=== PATIENT | female | born 1980 | race Caucasian/White ===

== ENCOUNTER 2016-06-26 20:20 | Emergency (ER) | payer OTHER ==
[2016-06-26 20:32] VITALS: BP 114/52; PULSE 88; TEMP 98.8; BMI 19.2
--- NOTE | 2016-06-26 20:57 | PDOC ---
History of Present Illness - General Chief Complaint: Cold Symptoms Stated Complaint: CONGESTION/DIFFICULTY BREATHING Time Seen by Provider: 06/26/16 20:33 History Source: Patient - History of Present Illness Timing/Duration: reports: other Associated Symptoms: reports: cough, headache, nasal congestion. denies: earache, fever/chills, sore throat, wheezing Past History - Past Medical History Allergies/Adverse Reactions: Allergies Allergy/AdvReac Type Severity Reaction Status Date / Time shellfish derived Allergy Intermediate Verified 08/18/15 17:23 No Known Drug Allergies Allergy Verified 08/18/15 17:23 Home Medications: Ambulatory Orders NK [No Known Home Medication] 06/26/16 Anemia: Yes Asthma: No Cancer: No Cardiac Disorders: No Diabetes: No HTN: No Seizures: No Thyroid Disease: No - Immunization History Immunization Up to Date: Yes - Psycho/Social/Smoking Cessation Hx Anxiety: No Suicidal Ideation: No Smoking Status: Yes Smoking History: Current every day smoker Have you smoked in the past 12 months: No Number of Cigarettes Smoked Daily: 10 Information on smoking cessation initiated: No 'Breaking Loose' booklet given: 08/18/15 Hx Alcohol Use: No Drug/Substance Use Hx: No Substance Use Type: None Hx Substance Use Treatment: No Review of Systems - Review of Systems Constitutional: No: Fever HEENTM: No: Ear Pain, Throat Pain Respiratory: Yes: Cough. No: Wheezing Neurological: Yes: Headache *Physical Exam - Vital Signs Last Vital Signs Temp Pulse Resp BP Pulse Ox 98.8 F 88 18 114/52 99 06/26/16 20:29 06/26/16 20:29 06/26/16 20:29 06/26/16 20:29 06/26/16 20:29 - Physical Exam General Appearance: Yes: Appropriately Dressed. No: Apparent Distress HEENT: positive: Normal ENT Inspection, Normal Voice. negative: Scleral Icterus (R), Scleral Icterus (L) Neck: positive: Supple. negative: Lymphadenopathy (R), Lymphadenopathy (L) Respiratory/Chest: positive: Lungs Clear, Normal Breath Sounds. negative: Respiratory Distress, Wheezing Cardiovascular: positive: Regular Rate, S1, S2 Integumentary: positive: Dry, Warm Neurologic: positive: Fully Oriented, Alert, Normal Mood/Affect Medical Decision Making - Medical Decision Making 06/26/16 20:54 35-year-old female smoker, presenting with 2 weeks of cough with nasal congestion and headache. Patient states she sometimes feels like she is unable to breathe. Denies hemoptysis, wheezing, CP, fever or chills. Patient well- appearing in ED and stable with unremarkable exam. Most likely URI. Dc with supportive treatment with smoking cessation encouraged 06/26/16 20:56 06/26/16 20:56 *DC/Admit/Observation/Transfer Diagnosis at time of Disposition: URI (upper respiratory infection) Qualifiers: URI type: unspecified viral URI Qualified Code(s): J06.9 - Acute upper respiratory infection, unspecified; B97.89 - Other viral agents as the cause of diseases classified elsewhere - Discharge Dispostion Disposition: HOME Condition at time of disposition: Good - Patient Instructions Printed Discharge Instructions: DI for Viral Upper Respiratory Infection -- Adult, How to Quit Smoking
== END 2016-06-26 20:56 | disposition home or self-care (01) ==
LOC: JERFT 20:20
DX: J06.9 Acute upper respiratory infection, unspecified (principal); B97.89 Other viral agents as the cause of diseases classified elsewhere; F17.210 Nicotine dependence, cigarettes, uncomplicated
CPT/HCPCS: 99281-25

== ENCOUNTER 2018-12-12 04:59 | Day surgery (SDC) | payer OTHER ==
[2018-12-07 17:38] VITALS: BMI 19.0
--- NOTE | 2018-12-12 08:40 | HP ---
History & Physical Update - History History: No Change - Physical Physical: No Change - Assessment Assessment: No Change - Plan Plan: No Change (Agree with and no updates to H&P from 12/07/18. For laparoscopic b/l salpingectomy.)
[2018-12-12] MEDS ORDERED: oxyCODONE HCL 5 MG TABLET PO PRN ×2 (09:57)
[2018-12-12] MEDS ORDERED: ONDANSETRON 4 MG/2 ML VIAL IVPUSH PRN (09:57)
[2018-12-12] MEDS ORDERED: LACTATED RINGERS SOLUTION 1,000 ML IV SCH (10:00)
[2018-12-12] MEDS ORDERED: ACETAMINOPHEN 325 MG TABLET (FP) PO PRN (10:59)
[2018-12-12] MEDS ORDERED: IBUPROFEN 600 MG TABLET (FP) PO PRN (10:59)
--- NOTE | 2018-12-12 10:59 | HP ---
Admitting History and Physical - Admission Chief Complaint: Here for tubal ligation/sterilization. History of Present Illness: 38 y/o P3 female with LMP 11/26/18 here for schedule laparoscopic bilateral salpingectomy. Pt has no significant medical history. Has h/o c section X 3 otherwise no surgical history. Pt does not take any medications. Pt has been counseled extensively in the office regarding sterilization and she requests this procedure electively. History Source: Patient, Medical Record Limitations to Obtaining History: No Limitations - Past Medical History ...LMP: 11/26/18 ...LMP Comment: regular ...: No ...Para: 3 - Past Surgical History Past Surgical History: Yes: - Smoking History Smoking history: Current every day smoker Have you smoked in the past 12 months: No Aproximately how many cigarettes per day: 6 - Alcohol/Substance Use Hx Alcohol Use: Yes (socially) - Social History Usual Living Arrangement: Yes: With Spouse ADL: Independent History of Recent Travel: No Home Medications - Allergies Allergies/Adverse Reactions: Allergies Allergy/AdvReac Type Severity Reaction Status Date / Time shellfish derived Allergy Intermediate Verified 12/07/18 17:39 No Known Drug Allergies Allergy Verified 12/07/18 17:39 - Home Medications Home Medications: Ambulatory Orders NK [No Known Home Medication] 06/26/16 Review of Systems - Review of Systems Constitutional: reports: No Symptoms Eyes: reports: No Symptoms HENT: reports: No Symptoms Neck: reports: No Symptoms Cardiovascular: reports: No Symptoms Respiratory: reports: No Symptoms Gastrointestinal: reports: No Symptoms Genitourinary: reports: No Symptoms Breasts: reports: No Symptoms Reported Musculoskeletal: reports: No Symptoms Integumentary: reports: No Symptoms Neurological: reports: No Symptoms Endocrine: reports: No Symptoms Hematology/Lymphatic: reports: No Symptoms Psychiatric: reports: No Symptoms Physical Examination Vital Signs: Vital Signs Temperature 98.3 F 12/12/18 09:13 Pulse Rate 60 12/12/18 09:13 Respiratory Rate 20 12/12/18 09:13 Blood Pressure 105/66 12/12/18 09:13 O2 Sat by Pulse Oximetry (%) 100 12/12/18 09:17 Constitutional: Yes: Well Nourished, No Distress, Calm Eyes: Yes: Conjunctiva Clear HENT: Yes: Atraumatic Neck: Yes: Supple Cardiovascular: Yes: Regular Rate and Rhythm Gastrointestinal: Yes: Normal Bowel Sounds, Soft. No: Tenderness, Tenderness, Rebound Neurological: Yes: Alert, Oriented Psychiatric: Yes: Alert, Oriented Problem List - Problems (1) Admission for sterilization Code(s): Z30.2 - ENCOUNTER FOR STERILIZATION Assessment/Plan 38 y/o P3 female here for scheduled elective sterilization via bilateral salpingectomy (laparoscopic) AFVSS NPO Informed consent obtained in office and re obtained today questions answered anesthesia aware SCDs
[2018-12-12] MEDS ORDERED: BUPIVACAINE HCL/PF 0.5% (5 MG/ML) 30 ML VIAL IJ ONE ×2 (11:08)
--- NOTE | 2018-12-12 12:14 | SURG ---
Surgery Stave Jointer Note Stave Jointer: Albert Garner PA-C Date of Service: 12/12/18 Diagnosis: Voluntary sterilization Procedure: Laproscopic bilateral salpingectomy I was present for the entirety of the operative procedure. For further detail, please refer to operative report. Visit type - Case Type Case Type: Scheduled - Emergency Emergency Visit: No - New patient This patient is new to me today: Yes Date on this admission: 12/12/18 - Critical Care Critical Care patient: No
--- NOTE | 2018-12-12 12:37 | OP ---
Operative Note - Note: Operative Date: 12/12/18 (22099) Pre-Operative Diagnosis: desires sterilization Operation: laparoscopic bilateral salpingectomy Findings: normal b/l tubes and ovaries Post-Operative Diagnosis: Same as Pre-op Surgeon: Shelley Rodriguez Resident Inspector: Albert Garner Anesthesiologist/RESIDENTIAL FIELD MANAGER: Mariano Rocha Anesthesia: General Specimens Removed: bilateral fallopian tubes Estimated Blood Loss (mls): 5 Operative Report Dictated: Yes
--- NOTE | 2018-12-12 14:25 | OP ---
DATE OF OPERATION: 12/12/2018 PREOPERATIVE DIAGNOSIS: Desire for permanent sterilization. POSTOPERATIVE DIAGNOSIS: Desire for permanent sterilization. PROCEDURE: Laparoscopic bilateral salpingectomy. SURGEON: Shelley Rodriguez MD HADOOP ENGINEER: Albert Garner PA-C ANESTHESIOLOGIST: Steven. Josefina MD ANESTHESIA: General anesthesia. SPECIMENS: Bilateral fallopian tubes. COMPLICATIONS: None. ESTIMATED BLOOD LOSS: 5 mL. COUNTS: Sponge, needle, and instrument counts correct. DISPOSITION: Stable to PACU. BRIEF HISTORY AND PROCEDURE: Patient is a 38-year-old para 3 female who had been seen in the office with request for sterilization, and she had signed consent for a bilateral salpingectomy done laparoscopically. The patient was admitted to [facility] on December 12, 2018. Consents were reconfirmed. She was then taken back to the operating room, given general anesthesia, and placed in the dorsal lithotomy position. A Looney catheter was placed under sterile conditions. She was prepped and draped in the usual standard fashion, and a hard time-out was performed. A 5-mm skin incision was created in the superior aspect of the umbilicus, and a Veress needle was inserted. The abdomen was insufflated with CO2 gas, and the trocar was inserted under direct visualization with the Visiport. Two bilateral lower quadrant 5-mm ports were placed under direct visualization. The left fallopian tube was identified, traced to its fimbriated end, elevated and dissected off its attachments to the ovary, mesosalpinx, and uterus. It was removed from the left lower quadrant trocar site without difficulty under direct visualization. The same was repeated with the right fallopian tube. Excellent hemostasis was noted after the procedure. Bilateral ovaries were noted to be normal. Inspection of the other intraabdominal contents revealed no abnormalities. The abdomen was then desufflated, and the trocars were removed. The skin was reapproximated using 4-0 Biosyn and skin glue. The patient was awoken from anesthesia, Looney catheter was removed, and she was taken to PACU to recover in stable condition. SHELLEY RODRIGUEZ DO /[id number]
[2018-12-12 15:40] VITALS: BP 100/54; PULSE 53; TEMP 97.7
--- NOTE | 2018-12-17 17:12 | PATH ---
Surgical Pathology Report Patient Name: NITHYA FREY [facility]. Rec. #: [id number] /Age/Gender: 1980 (Age: 38) / F Account: [id number] Location: [facility] SURGICAL Taken: 12/12/2018 Received: 12/12/2018 Reported: 12/17/2018 Physicians: Shelley Rodriguez M.D. Specimen(s) Received A: LEFT FALLOPIAN TUBE B: RIGHT FALLOPIAN TUBE Clinical History Sterilization Final Diagnosis A. FALLOPIAN TUBE, LEFT, SALPINGECTOMY: UNREMARKABLE FALLOPIAN TUBE (INCLUDING FIMBRIATED END AND FULL LUMINAL PORTION). B. FALLOPIAN TUBE, RIGHT, SALPINGECTOMY: UNREMARKABLE FALLOPIAN TUBE (INCLUDING FIMBRIATED END AND FULL LUMINAL PORTION). Electronically Signed Nithya Londono M.D. Gross Description A. Received in formalin labeled "left fallopian tube," are 2 portions of fallopian tube measuring 3.0 and 3.5 cm in length. The longer portion displays attached fimbria. The outer surfaces are villa-gibbs and smooth. Sectioning reveals an unremarkable lumen. Clinical Manager sections are submitted in 2 cassettes as follows: 1-fimbria; 2-cross sections of fallopian tube. B. Received in formalin labeled "right tube," is a 5.3 cm in length portion of fallopian tube. The fimbria are separately received within the same container. The outer surface of the fallopian tube is gibbs-purple and smooth. Sectioning reveals an unremarkable lumen. Clinical Manager sections are submitted in 2 cassettes as follows: 1-fimbria; 2-cross sections of fallopian tube. 12/13/2018 [facility]12/13/2018
== END 2018-12-12 15:59 | disposition home or self-care (01) ==
LOC: JASU-SURG 04:59
PROVIDERS: ATTEND Obstetrics & Gynecology
PROC: 0U574ZZ Destruction of Bilateral Fallopian Tubes, Percutaneous Endoscopic Approach (ICD-10-PCS; principal; 2018-12-12 11:00)
DX: Z30.2 Encounter for sterilization (principal)
CPT/HCPCS: 84703; 88302-TC; 94760

== ENCOUNTER 2021-11-26 18:03 | Emergency (ER) | payer OTHER ==
[2021-11-26 18:22] VITALS: BP 101/64; PULSE 88; RESP 16; TEMP 98.2; BMI 19.2
== END 2021-11-26 18:47 | disposition home or self-care (01) ==
LOC: FER 18:03
DX: S63.502A Unspecified sprain of left wrist, initial encounter (principal); X50.0XXA Overexertion from strenuous movement or load, initial encounter; W01.0XXA Fall on same level from slipping, tripping and stumbling without subsequent striking against object, initial encounter
CPT/HCPCS: 73110-TC-LT-FY; 99283-25

== ENCOUNTER 2022-06-16 08:43 | Emergency (ER) | payer OTHER, BC ==
[2022-06-16 09:03] VITALS: BP 113/72; PULSE 78; RESP 16; TEMP 97.9; BMI 20.8
[2022-06-16] MEDS ORDERED: IBUPROFEN 600 MG TABLET (FP) PO ONE ×2 (09:05→09:11)
[2022-06-16] MEDS ORDERED: PSEUDOEPHEDRINE HCL 60 MG TABLET PO ONE (09:06)
[2022-06-16] MEDS ORDERED: PSEUDOEPHEDRINE HCL 30 MG TABLET ONE (09:10)
== END 2022-06-16 09:29 | disposition home or self-care (01) ==
LOC: FER 08:43
DX: U07.1 COVID-19 (principal); R05.1 Acute cough; H61.21 Impacted cerumen, right ear; J02.9 Acute pharyngitis, unspecified
CPT/HCPCS: 0241U-QW; 87651; 99283-25

== ENCOUNTER 2022-08-28 13:36 | Emergency (ER) | payer OTHER, BC ==
[2022-08-28 13:40] VITALS: BP 122/53; PULSE 101; RESP 18; TEMP 99.2; BMI 20.1
[2022-08-28] MEDS ORDERED: DIPHTH,PERTUSS(ACELL),TET 0.5 ML DISP.SYRIN IM ONE ×2 (14:40→14:48)
== END 2022-08-28 15:01 | disposition home or self-care (01) ==
LOC: JERFT 13:36
PROC: 0HQEXZZ Repair Left Lower Arm Skin, External Approach (ICD-10-PCS; principal; 2022-08-28)
PROC: 3E0234Z Introduction of Serum, Toxoid and Vaccine into Muscle, Percutaneous Approach (ICD-10-PCS; 2022-08-28)
DX: S51.812A Laceration without foreign body of left forearm, initial encounter (principal); W26.8XXA Contact with other sharp object(s), not elsewhere classified, initial encounter; Y93.H2 Activity, gardening and landscaping
CPT/HCPCS: 90715; 99282-25

== ENCOUNTER 2022-09-14 16:04 | Emergency (ER) | payer OTHER, BC ==
[2022-09-14 16:49] VITALS: BP 100/55; PULSE 81; RESP 18; TEMP 98; BMI 21.0
== END 2022-09-14 17:14 | disposition home or self-care (01) ==
LOC: JERFT 16:04
DX: S51.812D Laceration without foreign body of left forearm, subsequent encounter (principal); X58.XXXD Exposure to other specified factors, subsequent encounter
CPT/HCPCS: 99282-25

== ENCOUNTER 2023-01-23 15:54 | Emergency (ER) | payer OTHER, BC ==
[2023-01-23 16:08] VITALS: BP 130/75; PULSE 82; RESP 16; TEMP 98; BMI 21.0
[2023-01-23] MEDS ORDERED: ACETAMINOPHEN 325 MG TABLET (FP) PO ONE (16:12)
[2023-01-23] MEDS ORDERED: KETOROLAC TROMETHAMINE 30 MG/1 ML VIAL IM ONE (16:12)
[2023-01-23] MEDS ORDERED: LIDOCAINE 5% TOPICAL PATCH TP ONE (16:12)
[2023-01-23] MEDS ORDERED: ACETAMINOPHEN 325 MG TABLET (FP) ONE (16:16)
[2023-01-23] MEDS ORDERED: KETOROLAC TROMETHAMINE 30 MG/1 ML VIAL ONE (16:16)
[2023-01-23] MEDS ORDERED: LIDOCAINE 5% TOPICAL PATCH ONE (16:16)
[2023-01-23] MEDS ORDERED: LIDOCAINE PATCH REMOVAL MC ONE (22:00)
== END 2023-01-23 18:15 | disposition home or self-care (01) ==
LOC: FER 15:54
PROC: 3E0233Z Introduction of Anti-inflammatory into Muscle, Percutaneous Approach (ICD-10-PCS; principal; 2023-01-23)
DX: M25.562 Pain in left knee (principal); W22.8XXA Striking against or struck by other objects, initial encounter; Y99.0 Civilian activity done for income or pay
CPT/HCPCS: 73562-TC-LT-FY